=== PATIENT | male | born 1990 | race American Indian/Alaskan Native ===

== ENCOUNTER 2020-10-20 08:53 | Emergency (ER) | payer SELFPAY ==
[2020-10-20 09:21] VITALS: BP 132/81
--- NOTE | 2020-10-20 09:49 | Emergency Department Report ---
ED ENT HPI - General Chief complaint: Earache Stated complaint: PAIN/HEARING LOSS(R)EAR Time Seen by Provider: 10/20/20 09:29 Source: patient Mode of arrival: Ambulatory Limitations: No Limitations - History of Present Illness Initial comments: 30-year-old -[place] male presents to the emergency room complaining of left ear pain and decreased hearing for the last 2 days. Patient denies any washing of his hair no swimming no foreign objects in the ear. He denies any fever chills no nausea no vomiting. He is unvaccinated. He has no past medical history currently takes no medications on a daily basis has no known drug allergies and does not have a primary care provider. MD complaint: ear pain Onset/Timin -: days(s) Location: R ear Severity: severe Severity scale (0 -10): 8 Quality: burning, stabbing, aching Consistency: constant Improves with: none Worsens with: none Associated Symptoms: hearing loss - Related Data Previous Rx's Medication Instructions Recorded Last Taken Type Neomy/Polymyx B/Hc Otic Susp 4 drops AD TID 10 Days #1 bottle 10/20/20 Unknown Rx [Cortisporin (Otic) Susp] Allergies Allergy/AdvReac Type Severity Reaction Status Date / Time No Known Allergies Allergy Unverified 10/20/20 09:20 ED Dental HPI - General Chief complaint: Earache Stated complaint: PAIN/HEARING LOSS(R)EAR Time Seen by Provider: 10/20/20 09:29 Source: patient Mode of arrival: Ambulatory Limitations: No Limitations - Related Data Previous Rx's Medication Instructions Recorded Last Taken Type Neomy/Polymyx B/Hc Otic Susp 4 drops AD TID 10 Days #1 bottle 10/20/20 Unknown Rx [Cortisporin (Otic) Susp] Allergies Allergy/AdvReac Type Severity Reaction Status Date / Time No Known Allergies Allergy Unverified 10/20/20 09:20 ED Review of Systems ROS: Stated complaint: PAIN/HEARING LOSS(R)EAR Other details as noted in HPI Comment: All other systems reviewed and negative Constitutional: denies: chills, fever Eyes: denies: eye pain, eye discharge, vision change ENT: ear pain (Right ear), hearing loss (Right ear). denies: throat pain ED Past Medical Hx - Past Medical History Previous Medical History?: No - Surgical History Past Surgical History?: No - Medications Home Medications: Home Medications Medication Instructions Recorded Confirmed Last Taken Type Neomy/Polymyx B/Hc Otic Susp 4 drops AD TID 10 Days #1 bottle 10/20/20 Unknown Rx [Cortisporin (Otic) Susp] ED Physical Exam - General Limitations: No Limitations General appearance: alert, in no apparent distress - Head Head exam: Present: atraumatic, normocephalic - Eye Eye exam: Present: normal appearance - Expanded ENT Exam Expanded TM/Canal exam: Erythema: Right TM, Canal Discharge: Right TM, Canal Tenderness: Right TM - Neck Neck exam: Present: normal inspection, full ROM - Respiratory Respiratory exam: Absent: respiratory distress, accessory muscle use - Cardiovascular Cardiovascular Exam: Present: regular rate - Extremities Exam Extremities exam: Present: normal inspection - Back Exam Back exam: Present: normal inspection - Neurological Exam Neurological exam: Present: alert, oriented X3, normal gait - Psychiatric Psychiatric exam: Present: normal affect, normal mood - Skin Skin exam: Present: warm, dry, intact, normal color. Absent: rash ED Course Vital Signs 10/20/20 09:19 Temperature 98.9 F Pulse Rate 65 Respiratory 18 Rate Blood Pressure 132/81 [Right] O2 Sat by Pulse 99 Oximetry ED Medical Decision Making - Medical Decision Making 30-year-old -[place] male presents to the emergency room complaining of left ear pain and decreased hearing for the last 2 days. Patient denies any washing of his hair no swimming no foreign objects in the ear. He denies any fever chills no nausea no vomiting. He is unvaccinated. He has no past medical history currently takes no medications on a daily basis has no known drug allergies and does not have a primary care provider. Patient has a right otitis externa. We will place him on Cortisporin suspension. Referral to ear nose and throat recommend Tylenol ibuprofen for pain. Critical care attestation.: If time is entered above; I have spent that time in minutes in the direct care of this critically ill patient, excluding procedure time. ED Disposition Clinical Impression: Otitis externa Disposition: DC-01 TO HOME OR SELFCARE Is pt being admited?: No Does the pt Need Aspirin: No Condition: Stable Instructions: Ear Drops, Adult, [id number], Otitis Externa, [id number] Additional Instructions: Use eardrops as prescribed. Tylenol or ibuprofen for pain management. Follow- up with the ear nose and throat provider if no improvement. Prescriptions: Neomy/Polymyx B/Hc Otic Susp [Cortisporin (Otic) Susp] 4 drops AD TID 10 Days #1 bottle Referrals: AGNES PERRY MD [Referring] - 3-5 Days Forms: Work/School Release Form(ED)
== END 2020-10-20 10:21 | disposition home or self-care (01) ==
LOC: ED 08:53
DX: H60.92 Unspecified otitis externa, left ear (principal)
CPT/HCPCS: 99281

== ENCOUNTER 2021-10-31 08:35 | Emergency (ER) | payer OTHER ==
[2021-10-31 09:20] VITALS: BP 146/79
== END 2021-10-31 12:26 | disposition left against medical advice (07) ==
LOC: ED 08:35
DX: R30.0 Dysuria (principal); Z53.21 Procedure and treatment not carried out due to patient leaving prior to being seen by health care provider